=== PATIENT | female | born 1980 | race Caucasian/White ===

== ENCOUNTER 2022-12-04 11:38 | Emergency (ER) | payer SELFPAY ==
[2022-12-04] MEDS ORDERED: MORPHINE 4 MG/ML SYR ONE (12:24)
[2022-12-04] MEDS ORDERED: ONDANSETRON 4 MG/2 ML VIAL ONE (12:24)
[2022-12-04 12:32] LABS: Hematocrit 41.3 % (36.0-45.0); MCV 85.4 fL (80-100); MPV 9.5 fL (7.6-11.3); Platelets 270 thou/uL (152-406); RBC Red Blood Cell Count 4.84 M/uL (3.86-4.86)
[2022-12-04 12:50] LABS: Potassium 3.9 mEq/L (3.5-5.1)
[2022-12-04 13:48] LABS: Specific Gravity 1.029 (1.005-1.030)
--- NOTE | 2022-12-04 13:53 | RAD REPORT ---
EXAM DESCRIPTION: US - Transvaginal Study Probe - 12/04/2022 1:17 pm CLINICAL HISTORY: ABD PAIN Pelvic pain. COMPARISON: <Comparisons> FINDINGS: The examination is significantly technically limited. The uterus is enlarged containing echogenic material in the endometrial canal. There is also some flu id present. Endometrium is significantly thickened measuring up to 1.5 cm. Both ovaries are seen and appear normal in size shape and echotexture. Normal blood flow is seen to b oth ovaries. No significant pelvic ascites. IMPRESSION: The uterus is enlarged with significant echogenic material and fluid present.Recommend gera vallecillo direct visualization with hysteroscopy.
[2022-12-04 13:59] LABS: Specific Gravity 1.029 (1.005-1.030); Urine Bacteria <20 /HPF (<20); Urine Bilirubin NEGATIVE (Negative); Urine Blood Negative (Negative); Urine Clarity Extremely Turbid (Clear); Urine Color Light-Yellow (Yellow); Urine Glucose NEGATIVE (Negative); Urine Mucus Slight /HPF (None Seen); Urine Protein TRACE (Negative); Urine RBC <5 /HPF (None Seen); Urine Urobilinogen Normal (Normal)
[2022-12-04] MEDS ORDERED: HYDROMORPHONE HCL 0.5 MG/0.5 ML INJ ONE (14:55)
[2022-12-04] MEDS ORDERED: KETOROLAC 30 MG/ML INJ ONE (14:55)
--- NOTE | 2022-12-04 16:06 | RAD REPORT ---
EXAM DESCRIPTION: CTAbdomen Pelvis W Contrast - 12/04/2022 3:44 pm CLINICAL HISTORY: Abdominal pain. ABD PAIN COMPARISON: <Comparisons> TECHNIQUE: Biphasic CT imaging of the abdomen and pelvis was performed with 100 ml non-ionic IV cont rast. All CT scans are performed using dose optimization technique as appropriate and may include automated exposure control or mA/KV adjustment according to patient size. FINDINGS: The lung bases are clear. The liver, spleen, pancreas, adrenal glands and kidneys are within normal limits. No bowel obstruction, free air, free fluid or abscess. The appendix is normal. No evidence of signi ficant lymphadenopathy. No suspicious bony findings. Dilated endometrial stripe measuring 18 mm in thickness. IMPRESSION: Dilated endometrial stripe measuring 18 mm in thickness. Followup hysteroscopy would be suggested for direct visualization.
--- NOTE | 2022-12-04 16:38 | ER ---
Nurse's Notes [facility] Name: Katerina Rain Age: 42 yrs Sex: Female : 1980 Arrival Date: 12/04/2022 Time: 11:38 Bed 19 Private MD: Diagnosis: Lower abdominal pain, unspecified Presentation: 12/04 12:06 Chief complaint: Patient states: pelvic and RLQ pain since her tubal ligation and kc6 ablation 2mo ago. denies n/v/d or vaginal bleeding. Coronavirus screen: At this time, the client does not indicate any symptoms associated with coronavirus-19. Ebola Screen: No symptoms or risks identified at this time. Initial Sepsis Screen: Does the patient meet any 2 criteria? No. Patient's initial sepsis screen is negative. Does the patient have a suspected source of infection? No. Patient's initial sepsis screen is negative. Risk Assessment: Do you want to hurt yourself or someone else? Patient reports no desire to harm self or others. Onset of symptoms was December 04, 2022. 12:06 Method Of Arrival: Wheelchair kc6 12:06 Acuity: RADHA 3 kc6 Triage Assessment: 12:09 General: Appears in no apparent distress. uncomfortable, Behavior is calm, cooperative, kc6 appropriate for age. Pain: Complains of pain in right lower quadrant and pelvis Pain does not radiate. Pain currently is 7 out of 10 on a pain scale. EENT: No signs and/or symptoms were reported regarding the EENT system. Neuro: Level of Consciousness is awake, alert, obeys commands, Oriented to person, place, time, situation, Appropriate for age. Cardiovascular: Capillary refill < 3 seconds. Respiratory: Airway is patent Trachea midline Respiratory effort is even, unlabored, Respiratory pattern is regular, symmetrical. GI: No signs and/or symptoms were reported involving the gastrointestinal system. : No signs and/or symptoms were reported regarding the genitourinary system. Derm: No signs and/or symptoms reported regarding the dermatologic system. Skin is intact, is healthy with good turgor, Skin is pink, warm \T\ dry. Musculoskeletal: No signs and/or symptoms reported regarding the musculoskeletal system. Circulation, motion, and sensation intact. Capillary refill < 3 seconds, Range of motion: intact in all extremities. 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 - Social history:: Smoking status: Patient denies any tobacco usage or history of. Screenin:10 [facility] ED Fall Risk Assessment (Adult) History of falling in the last 3 months, kc6 including since admission No falls in past 3 months (0 pts) Confusion or Disorientation No (0 pts) Intoxicated or Sedated No (0 pts) Impaired Gait No (0 pts) Mobility Assist Device Used No (0 pt) Altered Elimination No (0 pt) Score/Fall Risk Level 0 - 2 = Low Risk. Abuse screen: Denies threats or abuse. Denies injuries from another. Nutritional screening: No deficits noted. Tuberculosis screening: No symptoms or risk factors identified. Assessment: 12:11 Reassessment: please see triage assessment. [facility] 13:11 Reassessment: Patient appears in no apparent distress at this time. No changes from kc6 previously documented assessment. Patient and/or family updated on plan of care and expected duration. Pain level reassessed. Patient is alert, oriented x 3, equal unlabored respirations, skin warm/dry/pink. 14:39 Reassessment: Patient appears in no apparent distress at this time. No changes from kc6 previously documented assessment. Patient and/or family updated on plan of care and expected duration. Pain level reassessed. Patient is alert, oriented x 3, equal unlabored respirations, skin warm/dry/pink. 15:32 Reassessment: Patient appears in no apparent distress at this time. No changes from kc6 previously documented assessment. Patient and/or family updated on plan of care and expected duration. Pain level reassessed. Patient is alert, oriented x 3, equal unlabored respirations, skin warm/dry/pink. 16:24 Reassessment: Patient appears in no apparent distress at this time. No changes from kc6 previously documented assessment. Patient and/or family updated on plan of care and expected duration. Pain level reassessed. Patient is alert, oriented x 3, equal unlabored respirations, skin warm/dry/pink. Vital Signs: 12:06 BP 124 / 92; Pulse 59; Resp 18 S; Temp 97.8(O); Pulse Ox 100% on R/A; Weight 90.72 kg kc6 (R); Height 5 ft. 4 in. (R); Pain 7/10; 13:43 BP 113 / 79; Pulse 65; Resp 17 S; Pulse Ox 95% on R/A; kc6 14:39 BP 101 / 66; Pulse 63; Resp 19 S; Pulse Ox 95% on R/A; kc6 15:32 BP 109 / 72; Pulse 50; Resp 16 S; Pulse Ox 95% on R/A; kc6 16:24 BP 100 / 76; Pulse 52; Resp 18 S; Pulse Ox 95% on R/A; kc6 12:06 Body Mass Index 34.33 (90.72 kg, 162.56 cm) kc6 12:06 Pain Scale: Adult kc6 ED Course: 11:43 Patient arrived in ED. ts1 11:44 Fabi Gutierrez PA-C is PHCP. sb4 11:44 Chance Dubose MD is Attending Physician. sb4 11:58 Miriam Peres, RN is Primary Nurse. cm10 12:06 Indira Fry, RN is Primary Nurse. kc6 12:07 Triage completed. kc6 12:09 Arm band placed on. kc6 12:10 Patient has correct armband on for positive identification. Placed in gown. Bed in low kc6 position. Call light in reach. Side rails up X 1. Adult w/ patient. 13:16 Transvaginal Study (probe) In Process Unspecified. EDMS 13:58 Pelvis Complete In Process Unspecified. EDMS 15:46 CT Abd/Pelvis - IV Contrast Only In Process Unspecified. EDMS 16:38 Aleida Jackson MD is Referral Physician. sb4 16:45 No provider procedures requiring assistance completed. IV discontinued, intact, kc6 bleeding controlled, No redness/swelling at site. Pressure dressing applied. Administered Medications: 12:25 Drug: morphine IVP or IV 4 mg Route: IVP; Infused Over: 4 mins; Site: right antecubital;kc6 13:43 Follow up: Response: No adverse reaction; Pain is unchanged, physician notified; RASS: kc6 Alert and Calm (0) 12:25 Drug: Ondansetron IVP 4 mg Route: IVP; Site: right antecubital; kc6 13:44 Follow up: Response: No adverse reaction kc6 14:51 Drug: HYDROmorphone IVP 0.5 mg Route: IVP; Site: right antecubital; kc6 16:17 Follow up: Response: No adverse reaction; Pain is decreased; RASS: Alert and Calm (0) kc6 14:51 Drug: Ketorolac IVP 15 mg Route: IVP; Site: right antecubital; kc6 16:17 Follow up: Response: No adverse reaction kc6 Medication: 16:46 VIS not applicable for this client. kc6 Outcome: 16:38 Discharge ordered by . sb4 16:46 Discharged to home ambulatory, with significant other. kc6 16:46 Condition: improved 16:46 Discharge instructions given to patient, Instructed on discharge instructions, follow up and referral plans. medication usage, Demonstrated understanding of instructions, follow-up care, medications, Prescriptions given X 1. 16:48 Patient left the ED. kc6 Signatures: Dispatcher [employer] EDIndira Conde RN RN [email or web address] Fabi Gutierrez, PA-C PA-C [email or web address] Shahla Yu PAS PAS ts1 Miriam Peres, RN RN cm10
--- NOTE | 2022-12-04 16:38 | EDPHYS ---
Physician Documentation [facility] Name: Katerina Rain Age: 42 yrs Sex: Female : 1980 Arrival Date: 12/04/2022 Time: 11:38 Bed 19 Private MD: ED Physician Chance Dubose HPI: 12/04 16:07 This 42 yrs old Female presents to ER via Wheelchair with complaints of Abdominal Pain, sb4 Pelvic Pain. 16:07 The patient presents with abdominal pain right lower quadrant. Onset: The sb4 symptoms/episode began/occurred gradually. The symptoms do not radiate. 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 she states that she has had moderate abdominal/pelvic cramping since but today the pain got significantly worse and is located specifically in her RLQ. she denies any vaginal bleeding, nausea, vomiting, diarrhea, fever, chills, shortness of breath. she had been taking ibuprofen for the pain previously. 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 - Social history:: Smoking status: Patient denies any tobacco usage or history of. ROS: 19:05 Constitutional: Negative for fever, chills, and weight loss. sb4 19:05 Abdomen/GI: Positive for abdominal pain, Negative for nausea, vomiting, and diarrhea. 19:05 All other systems are negative. Exam: 19:05 Constitutional: This is a well developed, well nourished patient who is awake, alert, sb4 and in no acute distress. 19:05 Head/Face: Normocephalic, atraumatic. Eyes: Extra-ocular motions intact. Periorbital areas with no swelling, redness, or edema. Cardiovascular: Regular rate and rhythm with a normal S1 and S2. Respiratory: Lungs have equal breath sounds bilaterally, clear to auscultation and percussion. No rales, rhonchi or wheezes noted. No increased work of breathing, no retractions or nasal flaring. Skin: Warm, dry with normal turgor. Normal color with no rashes, no lesions, and no evidence of cellulitis. MS/ Extremity: Pulses equal, no cyanosis. Neurovascular intact. Full, normal range of motion. 19:05 Abdomen/GI: Inspection: abdomen appears normal, Bowel sounds: normal, Palpation: soft, moderate abdominal tenderness, in the right lower quadrant. Vital Signs: 12:06 BP 124 / 92; Pulse 59; Resp 18 S; Temp 97.8(O); Pulse Ox 100% on R/A; Weight 90.72 kg kc6 (R); Height 5 ft. 4 in. (R); Pain 7/10; 13:43 BP 113 / 79; Pulse 65; Resp 17 S; Pulse Ox 95% on R/A; kc6 14:39 BP 101 / 66; Pulse 63; Resp 19 S; Pulse Ox 95% on R/A; kc6 15:32 BP 109 / 72; Pulse 50; Resp 16 S; Pulse Ox 95% on R/A; kc6 16:24 BP 100 / 76; Pulse 52; Resp 18 S; Pulse Ox 95% on R/A; kc6 12:06 Body Mass Index 34.33 (90.72 kg, 162.56 cm) kc6 12:06 Pain Scale: Adult kc6 MDM: 11:44 Patient medically screened. sb4 19:05 Differential diagnosis: appendicitis, diverticulitis, Dysmenorrhea, Endometriosis, sb4 non-specific abd pain, ovarian torsion, ovarian cyst, IUP, ectopic . Data reviewed: vital signs, nurses notes, lab test result(s), radiologic studies, and as a result, I will discharge patient. Consideration of Admission/Observation Escalation of care including admission/observation considered. Historians other than the Patient: Spouse/Significant Other: spouse. Counseling: I had a detailed discussion with the patient and/or guardian regarding the historical points, exam findings, and any diagnostic results supporting the discharge/admit diagnosis, lab results, radiology results, the need for outpatient follow up, an OB/Gyne specialist, to return to the emergency department if symptoms worsen or persist or if there are any questions or concerns that arise at home. 12/04 12:10 Order name: UAM; Complete Time: 14:00 sb4 12/04 12:10 Order name: Test, Urine; Complete Time: 13:50 sb4 12/04 12:10 Order name: CBC w/o diff; Complete Time: 12:33 sb4 12/04 12:10 Order name: BMP; Complete Time: 12:54 sb4 12/04 12:10 Order name: Transvaginal Study (probe); Complete Time: 13:56 sb4 12/04 13:58 Order name: Pelvis Complete EDMS 12/04 15:17 Order name: CT Abd/Pelvis - IV Contrast Only; Complete Time: 16:08 sb4 12/04 12:10 Order name: IV Start; Complete Time: 12:25 sb4 Administered Medications: 12:25 Drug: morphine IVP or IV 4 mg Route: IVP; Infused Over: 4 mins; Site: right antecubital;kc6 13:43 Follow up: Response: No adverse reaction; Pain is unchanged, physician notified; RASS: kc6 Alert and Calm (0) 12:25 Drug: Ondansetron IVP 4 mg Route: IVP; Site: right antecubital; kc6 13:44 Follow up: Response: No adverse reaction kc6 14:51 Drug: HYDROmorphone IVP 0.5 mg Route: IVP; Site: right antecubital; kc6 16:17 Follow up: Response: No adverse reaction; Pain is decreased; RASS: Alert and Calm (0) kc6 14:51 Drug: Ketorolac IVP 15 mg Route: IVP; Site: right antecubital; kc6 16:17 Follow up: Response: No adverse reaction kc6 Disposition: 17:43 Co-signature as Attending Physician, Chance Dubose MD I reviewed the patient's care rt provided by the Advanced Practice Provider and agree with the diagnosis and treatment plan. Disposition Summary: 12/04/22 16:38 Discharge Ordered Location: Home sb4 Problem: new sb4 Symptoms: have improved sb4 Condition: Stable sb4 Diagnosis - Lower abdominal pain, unspecified sb4 Followup: sb4 - With: - When: 2 - 3 days - Reason: Further diagnostic work-up, Recheck today's complaints, Re-evaluation by your physician Discharge Instructions: - Discharge Summary Sheet sb4 - Pelvic Pain, Female, [id number] sb4 - Hysteroscopy sb4 Forms: - Medication Reconciliation Form sb4 - Thank You Letter sb4 - Antibiotic Education sb4 - Prescription Opioid Use sb4 - Patient Portal Instructions sb4 - Leadership Thank You Letter sb4 Prescriptions: - Tramadol 50 mg Oral Tablet - take 1 tablet by ORAL route every 8 hours as needed; 12 tablet; Refills: 0, sb4 Product Selection Permitted Signatures: Dispatcher [employer] Indira Coley RN RN kc6 Fabi Gutierrez, IRAIDA PAFrances sb4 Chance Dubose MD MD rt
[2022-12-04 16:59] VITALS: TEMP 97.8
[2022-12-04 17:03] VITALS: O2SAT 95
[2022-12-04 17:10] VITALS: BP 100/76
== END 2022-12-04 16:48 | disposition home or self-care (01) ==
LOC: ER 11:38
DX: R10.31 Right lower quadrant pain (principal)
CPT/HCPCS: 36415; 74177; 76830; 76856; 80048; 81001; 81025; 85027; J1170; J2405; Q9967

== ENCOUNTER 2023-02-19 21:24 | Emergency (ER) | payer BC, SELFPAY ==
--- OUTSIDE RECORDS SUMMARY | 2023-02-19 21:27 | XMS REPORT | Continuity of Care Document ---
:1980 Author Organization [facility] t Address [address] [address] Care Team Providers Name Role Phone [email or web address]_E Attending Clinician Unavailable GC_GCBZW_Kadiyala_S Attending Clinician Unavailable GC_SWHAHL_McIntire_E Admitting Clinician Unavailable GC_GCBZW_Kadiyala_S Admitting Clinician Unavailable Payers Payer Name Policy Type Policy Number Effective Date Expiration Date S our[place] [id number] 2022 00:00:00 [place] Problems This patient has no known problems. Allergies, Adverse Reactions, Alerts This patient has no known allergies or adverse reactions. Medications This patient has no known medications. Procedures This patient has no known procedures. Encounters Start End Encounter Admission Attending Care Care Encounter Source Date/Time Date/Time Type Type Clinicians Facility Department ID 2023-02-10 2023-02-10 Outpatient GC_SWHAHL_M PRIV PRIV [id number] [facility] 00:00:00 00:00:00 cIntire_E [id number] [facility] 2023-01-23 2023-01-23 Outpatient GC_GCBZW_Ka PRIV PRIV [id number] [facility] 00:00:00 00:00:00 diyala_S [id number] [facility] 2023-01-13 2023-01-13 Outpatient GC_SWHAHL_M PRIV PRIV [id number] [facility] 00:00:00 00:00:00 cIntire_E [id number] [facility] 2022-12-26 2022-12-26 Outpatient GC_GCBZW_Ka PRIV PRIV [id number] [facility] 00:00:00 00:00:00 diyala_S [id number] [facility] 2022-12-26 2022-12-26 Outpatient GC_GCBZW_Ka PRIV PRIV [id number] [facility] 00:00:00 00:00:00 diyala_S [id number] Medic al 2022-12-26 2022-12-26 Outpatient GC_GCBZW_Ka PRIV PRIV [id number] [facility] 00:00:00 00:00:00 diyala_S [id number] Medic al 2022-12-18 2022-12-18 Outpatient GC_GCBZW_Ka PRIV PRIV [id number] [facility] 00:00:00 00:00:00 diyala_S [id number] Medic al 2022-12-16 2022-12-16 Outpatient GC_SWHAHL_M PRIV PRIV [id number] [facility] 00:00:00 00:00:00 cIntire_E [id number] [facility] 2022-12-13 2022-12-13 Outpatient GC_SWHAHL_M PRIV PRIV [id number] [facility] 00:00:00 00:00:00 cIntire_E [id number] [facility] 2022-12-12 2022-12-12 Outpatient GC_GCBZW_Ka PRIV PRIV [id number] [facility] 00:00:00 00:00:00 diyala_S [id number] Medic al 2022-12-11 2022-12-11 Outpatient GC_GCBZW_Ka PRIV PRIV [id number] [facility] 00:00:00 00:00:00 diyala_S [id number] Medic al 2022-12-10 2022-12-10 Outpatient GC_GCBZW_Ka PRIV PRIV [id number] [facility] 00:00:00 00:00:00 diyala_S [id number] Medic al 2022-12-05 2022-12-05 Outpatient GC_GCBZW_Ka PRIV PRIV [id number] [facility] 00:00:00 00:00:00 diyala_S [id number] Medic al Results This patient has no known results.
[2023-02-19] MEDS ORDERED: NA CHLORIDE 0.9% 1,000 ML ONE (22:10)
[2023-02-19] MEDS ORDERED: MORPHINE 4 MG/ML SYR ONE (22:10)
[2023-02-19] MEDS ORDERED: ONDANSETRON 4 MG/2 ML VIAL ONE (22:10)
[2023-02-19 23:04] LABS: Albumin 3.7 g/dL (3.4-5.0); Bilirubin Total 0.5 mg/dL (0.2-1.0); Potassium 3.8 mEq/L (3.5-5.1); Protein, Total 7.6 g/dL (6.4-8.2)
[2023-02-19 23:13] LABS: Absolute Lymphocytes (CBC) 1.9 K/uL (0.7-4.9); Hematocrit 38.4 % (36.0-45.0); Lymphocytes % 14.7 % (15.3-44.8); MCV 85.7 fL (80-100); MPV 9.6 fL (7.6-11.3); Platelets 250 thou/uL (152-406); RBC Red Blood Cell Count 4.48 M/uL (3.86-4.86)
[2023-02-20 01:23] LABS: Urine Bacteria None Seen /HPF (<20); Urine Bilirubin NEGATIVE (Negative); Urine Blood Negative (Negative); Urine Clarity Turbid (Clear); Urine Color Light-Yellow (Yellow); Urine Glucose NEGATIVE (Negative); Urine Mucus 1+ /HPF (None Seen); Urine Protein NEGATIVE (Negative); Urine RBC None Seen /HPF (None Seen); Urine Urobilinogen Normal (Normal); Urine pH 6.5 (5.0-7.0)
--- NOTE | 2023-02-20 01:27 | ER ---
Nurse's Notes [facility] Name: Katerina Rain Age: 42 yrs Sex: Female : 1980 Arrival Date: 02/19/2023 Time: 21:24 Bed 4 Private MD: Diagnosis: Lower abdominal pain, unspecified Presentation: 02/19 21:35 Chief complaint: Patient states: PELVIC AND ABD PAIN THAT SHOTS DOWNS HER LEGS AND BACK jj7 SINCE OCTOBER. TOOK 2 TRAMADOL AND PRENOPROXIN AND IT'S NOT HELPING WITH THE PAIN. Coronavirus screen: At this time, the client does not indicate any symptoms associated with coronavirus-19. Ebola Screen: No symptoms or risks identified at this time. Initial Sepsis Screen: Does the patient meet any 2 criteria? No. Patient's initial sepsis screen is negative. Does the patient have a suspected source of infection? No. Patient's initial sepsis screen is negative. Risk Assessment: Do you want to hurt yourself or someone else? Patient reports no desire to harm self or others. 21:35 Method Of Arrival: Ambulatory [facility] 21:35 Acuity: RADHA 3 j7 02/20 00:37 Onset of symptoms is unknown. jw7 Triage Assessment: 02/19 21:40 General: Appears in no apparent distress. uncomfortable, Behavior is cooperative, jj7 appropriate for age, agitated. Pain: Complains of pain in back and pelvis. GI: Reports nausea. 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 - Social history:: Smoking status: Patient denies any tobacco usage or history of. Patient/guardian denies using alcohol, street drugs. Screenin:15 [facility] ED Fall Risk Assessment (Adult) History of falling in the last 3 months, cm10 including since admission No falls in past 3 months (0 pts) Confusion or Disorientation No (0 pts) Intoxicated or Sedated No (0 pts) Impaired Gait No (0 pts) Mobility Assist Device Used No (0 pt) Altered Elimination No (0 pt) Score/Fall Risk Level 0 - 2 = Low Risk Oriented to surroundings, Maintained a safe environment, Hourly rounding (assess needs \T\ fall precautionary measures) done. Abuse screen: Denies threats or abuse. Denies injuries from another. Nutritional screening: No deficits noted. Tuberculosis screening: No symptoms or risk factors identified. Assessment: 22:14 General: Appears in no apparent distress. uncomfortable, Behavior is calm, cooperative. cm10 Pain: Complains of pain in pelvis and back Pain currently is 8 out of 10 on a pain scale. Quality of pain is described as sharp, Pain began October 2022 Is intermittent. Neuro: No deficits noted. Sanchez Agitation-Sedation Scale (RASS): 0 - Alert and Calm Level of Consciousness is awake, alert, obeys commands, Oriented to person, place, time, situation. Cardiovascular: No deficits noted. Patient's skin is warm and dry. Respiratory: No deficits noted. Airway is patent Respiratory effort is even, unlabored, Respiratory pattern is regular, symmetrical. GI:. GI: Bowel sounds present X 4 quads. Abd is soft. : No deficits noted. No signs and/or symptoms were reported regarding the genitourinary system. EENT: No deficits noted. No signs and/or symptoms were reported regarding the EENT system. Derm: No deficits noted. No signs and/or symptoms reported regarding the dermatologic system. Skin is intact, Skin is pink, warm \T\ dry. 02/20 00:20 Reassessment: Patient appears in no apparent distress at this time. No changes from [facility] previously documented assessment. Patient and/or family updated on plan of care and expected duration. Pain level reassessed. Patient is alert, oriented x 3, equal unlabored respirations, skin warm/dry/pink. 01:21 Reassessment: Patient appears in no apparent distress at this time. No changes from jw7 previously documented assessment. Patient and/or family updated on plan of care and expected duration. Pain level reassessed. Patient is alert, oriented x 3, equal unlabored respirations, skin warm/dry/pink. Vital Signs: 02/19 21:35 BP 143 / 91; Pulse 84; Resp 19; Temp 98.1; Pulse Ox 100% ; Weight 99.79 kg; Height 5 jj7 ft. 4 in. ; Pain 8/10; 22:00 BP 118 / 83; Pulse 73; Resp 18 S; Pulse Ox 100% on R/A; jw7 23:00 BP 120 / 78; Pulse 67; Resp 19 S; Pulse Ox 100% on R/A; jw7 02/20 00:30 BP 143 / 97; Pulse 73; Resp 17 S; Pulse Ox 100% on R/A; jw7 01:30 BP 149 / 93; Pulse 65; Resp 17 S; Pulse Ox 100% on R/A; jw7 02/19 21:35 Body Mass Index 37.76 (99.79 kg, 162.56 cm) j7 02/19 21:35 Pain Scale: Adult [facility] ED Course: 02/19 21:28 Patient arrived in ED. ag3 21:40 Triage completed. 7 21:40 Arm band placed on left wrist. [facility] 21:42 Kimberley Hughes FNP-C is PHCP. kb 21:42 Fred Saez MD is Attending Physician. kb 22:12 Initial lab(s) drawn, by me, sent to lab. Inserted saline lock: 20 gauge in right cm10 antecubital area, using aseptic technique. Blood collected. 22:12 CBC with Diff Sent. cm10 22:12 CMP Sent. cm10 22:12 Lipase Sent. cm10 22:15 Patient has correct armband on for positive identification. Bed in low position. Call cm10 light in reach. Side rails up X2. Adult w/ patient. Provided Education on: ER process and procedures. . Pulse ox on. NIBP on. Door closed. Lights dimmed. 02/20 00:21 CT Abd/Pelvis - IV Contrast Only In Process Unspecified. EDMS 00:27 Anthony Valle, RN is Primary Nurse. bp 01:53 No provider procedures requiring assistance completed. IV discontinued, intact, jw7 bleeding controlled, No redness/swelling at site. Pressure dressing applied. Administered Medications: 02/19 22:11 Drug: NS 0.9% IV 1000 ml IV at 1 bolus Per protocol; 1000 mL bolus Route: IV; Rate: 1 cm10 bolus; Site: right antecubital; 02/20 00:00 Follow up: Response: No adverse reaction; IV Status: Completed infusion; IV Intake: cm10 1000ml 02/19 22:11 Drug: Ondansetron IVP 4 mg IVP once; over 2 minutes Route: IVP; Site: right antecubital;cm10 02/20 00:01 Follow up: Response: No adverse reaction cm10 02/19 22:11 Drug: morphine IVP or IV 4 mg IVP once over 4 mins Route: IVP; Infused Over: 4 mins; cm10 Site: right antecubital; 02/20 00:01 Follow up: Response: No adverse reaction cm10 01:52 Drug: Ketorolac IVP 15 mg IVP once Route: IVP; Site: right antecubital; jw7 01:52 Follow up: Response: No adverse reaction jw7 01:52 Drug: Rayle PO 10 mg-325 mg 1 tabs PO once Route: PO; jw7 01:52 Follow up: Response: No adverse reaction jw7 Medication: 02/19 22:16 VIS not applicable for this client. cm10 Intake: 02/20 00:00 IV: 1000ml; Total: 1000ml. cm10 Outcome: 01:27 Discharge ordered by MD. jorge 01:53 Discharged to home ambulatory, with family, jw7 01:53 Condition: stable 01:53 Discharge instructions given to patient, Instructed on discharge instructions, follow up and referral plans. Demonstrated understanding of instructions, follow-up care, 01:54 Patient left the ED. jw7 Signatures: Dispatcher [employer] EDMS Kimberley Hughes, ANTHONY-C FISH PEDDLER-Anthony Hooker, RN RN Phyllis Mensah ag3 Paige Guzman RN RN jw7 David Osorio RN RN jj7 Martinez, Clarissa, RN RN cm10
--- NOTE | 2023-02-20 01:28 | EDPHYS ---
Physician Documentation [facility] Name: Katerina Rain Age: 42 yrs Sex: Female : 1980 Arrival Date: 02/19/2023 Time: 21:24 Bed 4 Private MD: Fred Holbrook HPI: 02/20 01:44 This 42 yrs old Female presents to ER via Ambulatory with complaints of Abdominal Pain, kb Vaginal Pain. 01:44 Patient is a 42-year-old female with a history of endometriosis who presents for right kb lower quadrant and pelvic pain. States she has been seen by gynecology for this and has been trying to do more conservative treatment, surgery has been offered. States the pain has been getting more intense with each episode and today is the worst. States the pain is always on the right side. Denies vaginal bleeding, nausea, vomiting, diarrhea, fever. 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 - Social history:: Smoking status: Patient denies any tobacco usage or history of. Patient/guardian denies using alcohol, street drugs. ROS: 02/20 01:42 Constitutional: Negative for fever, chills, and weight loss, kb Abdomen/GI: Positive for abdominal pain, All other systems are negative, Exam: 01:42 Constitutional: This is a well developed, well nourished patient who is awake, alert, kb and in no acute distress. Head/Face: Normocephalic, atraumatic. ENT: Moist Mucous membranes Cardiovascular: Regular rate Respiratory: Respirations even and unlabored. No increased work of breathing. Talking in full sentences Skin: Warm, dry with normal turgor. Normal color. MS/ Extremity: Pulses equal, no cyanosis. Neurovascular intact. Full, normal range of motion. Neuro: Awake and alert, GCS 15, oriented to person, place, time, and situation. Moves all extremities. Normal gait. 01:42 Abdomen/GI: Inspection: abdomen appears normal, Bowel sounds: normal, Palpation: soft, in all quadrants, moderate abdominal tenderness, in the right lower quadrant, Vital Signs: 02/19 21:35 BP 143 / 91; Pulse 84; Resp 19; Temp 98.1; Pulse Ox 100% ; Weight 99.79 kg; Height 5 jj7 ft. 4 in. ; Pain 8/10; 22:00 BP 118 / 83; Pulse 73; Resp 18 S; Pulse Ox 100% on R/A; jw7 23:00 BP 120 / 78; Pulse 67; Resp 19 S; Pulse Ox 100% on R/A; jw7 02/20 00:30 BP 143 / 97; Pulse 73; Resp 17 S; Pulse Ox 100% on R/A; jw7 01:30 BP 149 / 93; Pulse 65; Resp 17 S; Pulse Ox 100% on R/A; jw7 02/19 21:35 Body Mass Index 37.76 (99.79 kg, 162.56 cm) [facility] 02/19 21:35 Pain Scale: Adult [facility] MDM: 02/19 21:42 Patient medically screened. kb 02/20 01:43 Differential diagnosis: appendicitis, Endometriosis, non-specific abd pain, kb Pyelonephritis, Ureterolithiasis, urinary tract infection. Data reviewed: vital signs, nurses notes. Counseling: I had a detailed discussion with the patient and/or guardian regarding the historical points, exam findings, and any diagnostic results supporting the discharge/admit diagnosis, lab results, radiology results, the need for outpatient follow up, an OB/Gyne specialist, to return to the emergency department if symptoms worsen or persist or if there are any questions or concerns that arise at home. ED course: Discussed all results with patient including concern for malignancy on CT scan. Patient states she has discussed surgeries, biopsy and conservative treatments with drum tender. Has appointment at the end of the month. Will call tomorrow to see if she can get appointment moved up.. 02/19 21:46 Order name: CBC with Diff; Complete Time: 23:20 kb 02/19 21:46 Order name: CMP; Complete Time: 23:15 kb 02/19 21:46 Order name: Lipase; Complete Time: 23:15 kb 02/19 21:46 Order name: Test, Urine; Complete Time: 01:25 kb 02/19 21:46 Order name: Urinalysis w/ reflexes; Complete Time: 01:25 kb 02/19 21:46 Order name: CT Abd/Pelvis - IV Contrast Only kb 02/19 21:46 Order name: IV Saline Lock; Complete Time: 22:11 kb 02/19 21:46 Order name: Labs collected and sent; Complete Time: 22:11 kb Administered Medications: 02/19 22:11 Drug: NS 0.9% IV 1000 ml IV at 1 bolus Per protocol; 1000 mL bolus Route: IV; Rate: 1 cm10 bolus; Site: right antecubital; 02/20 00:00 Follow up: Response: No adverse reaction; IV Status: Completed infusion; IV Intake: cm10 1000ml 02/19 22:11 Drug: Ondansetron IVP 4 mg IVP once; over 2 minutes Route: IVP; Site: right antecubital;cm10 02/20 00:01 Follow up: Response: No adverse reaction cm10 02/19 22:11 Drug: morphine IVP or IV 4 mg IVP once over 4 mins Route: IVP; Infused Over: 4 mins; cm10 Site: right antecubital; 02/20 00:01 Follow up: Response: No adverse reaction 10 01:52 Drug: Ketorolac IVP 15 mg IVP once Route: IVP; Site: right antecubital; jw7 01:52 Follow up: Response: No adverse reaction 7 01:52 Drug: Parrott PO 10 mg-325 mg 1 tabs PO once Route: PO; jw7 01:52 Follow up: Response: No adverse reaction jw7 Disposition Summary: 02/20/23 01:27 Discharge Ordered Notes: Location: Home Condition: Stable kb Diagnosis - Lower abdominal pain, unspecified kb Followup: kb - With: Emergency Department - When: As needed - Reason: Worsening of condition Followup: kb - With: Private Physician - When: 2 - 3 days - Reason: Recheck today's complaints, Continuance of care, Re-evaluation by your physician Discharge Instructions: - Discharge Summary Sheet kb - Endometriosis kb - Abdominal Pain, Adult, [id number] kb Forms: - Medication Reconciliation Form kb - Thank You Letter kb - Antibiotic Education kb - Prescription Opioid Use kb - Patient Portal Instructions kb - Leadership Thank You Letter kb Signatures: Dispatcher [employer] Kimberley Barahona, ANTHONY-C BILLET CUTTER-Paige Lira, RN RN jw7 David Osorio RN RN jj7 Miriam Peres RN RN cm10
[2023-02-20] MEDS ORDERED: HYDROCODONE/APAP 10/325 TAB ONE (01:58)
[2023-02-20] MEDS ORDERED: KETOROLAC 30 MG/ML INJ ONE (01:58)
[2023-02-20 02:28] VITALS: TEMP 98.1; O2SAT 100
[2023-02-20 02:32] VITALS: BP 149/93
--- NOTE | 2023-02-20 12:41 | RAD REPORT ---
EXAM DESCRIPTION: Abdomen Pelvis W Contrast CLINICAL HISTORY: PELVIC PAIN COMPARISON: 12/04/2022 TECHNIQUE: CT of the abdomen and pelvis performed following the administration of IV contrast. No or al contrast. This exam was performed according to our departmental dose-optimization program, which i ncludes automated exposure control, adjustment of the mA and/or kV according to patient size and/or u se of iterative reconstruction technique. FINDINGS: Lung Bases: Mild bilateral dependent atelectasis. Abdomen: Liver: The liver has normal contour and density. No suspicious mass. Gallbladder: No calcified gallstones. No significant biliary dilatation. Spleen, Pancreas, and Adrenal Glands: The spleen, pancreas, and adrenal glands are unremarkable. Kidneys: No suspicious mass. No urinary tract calculi. No hydronephrosis. Vasculature: The aorta and IVC have normal caliber and position. The portal vein is patent. The pro ximal visceral and renal arteries are patent. Stomach: The stomach and duodenum have normal course. Other: No free intraperitoneal air. No free fluid or lymphadenopathy. Pelvis: Bladder: Underdistended. Bowel: No dilated loops of large or small bowel. Moderate stool in the colon. There is a nodule i n the anterior midabdomen measuring up to 1.2 cm with apparent fat density. This could be due to sequ shirin of prior fat necrosis or omental infarct. Appendix: Normal appendix. Pelvis: There is heterogeneous lobular appearance of the endometrium, progressed from prior. Findings are concerning for malignancy. Bones: No destructive bone lesions identified. IMPRESSION: 1. Increase heterogeneous lobular thickening of the endometrium, concerning for malignan cy. Pelvic ultrasound could be performed for further evaluation. Correlate with any history of previo us biopsy. 2. Moderate stool in the colon. No bowel obstruction. 3. Small nodule in the anterior lower abdomen is not definitely seen on prior. There appears to be so me central fat density and is sequela of prior fat necrosis Electronically signed by: Tarah Blum MD 02/20/2023 12:43 AM CDT Due to temporary technical issues with the PACS/Fluency reporting system, reports are being signed by the in house radiologist without review as a courtesy to ensure prompt reporting. The interpreting r adiologist is fully responsible for the content of the report.
== END 2023-02-20 01:54 | disposition home or self-care (01) ==
LOC: ER 21:24
DX: R10.31 Right lower quadrant pain (principal); R10.2 Pelvic and perineal pain
CPT/HCPCS: 96361; 85025; 81001; 36415; 81025; 83690; 80053; 74177; 96375; 96374; 99284; Q9967; J2405; J7030

== ENCOUNTER 2023-03-28 11:31 | Day surgery (SDC) | payer BC ==
[2023-03-25 12:03] LABS: Specific Gravity 1.028 (1.005-1.030); Urine Bacteria None Seen /HPF (<20); Urine Bilirubin NEGATIVE (Negative); Urine Blood Negative (Negative); Urine Clarity Turbid (Clear); Urine Color Light-Yellow (Yellow); Urine Glucose NEGATIVE (Negative); Urine Mucus Slight /HPF (None Seen); Urine Protein NEGATIVE (Negative); Urine Urobilinogen Normal (Normal)
[2023-03-25 12:15] LABS: Absolute Lymphocytes (CBC) 3.1 K/uL (0.7-4.9); Hematocrit 38.4 % (36.0-45.0); Lymphocytes % 36.1 % (15.3-44.8); MCV 86.7 fL (80-100); MPV 9.6 fL (7.6-11.3); Platelets 235 thou/uL (152-406); RBC Red Blood Cell Count 4.43 M/uL (3.86-4.86)
[~2023-03-28 11:31] MED LIST: CEFAZOLIN 3 GM in NA CHLORIDE 0.9% 100 ML IVPB SCH
[2023-03-28] MEDS ORDERED: CEFAZOLIN SODIUM 1 GM/VIAL ONE (12:03)
[2023-03-28] MEDS ORDERED: SCOPOLAMINE HYDROBROMIDE PATCH TD ONE (12:03)
[2023-03-28] MEDS ORDERED: CEFAZOLIN SODIUM 2 GM/VIAL ONE (12:03)
[2023-03-28] MEDS ORDERED: Ringers Lactate 1,000 ML IV ONE ×2 (12:04→14:36)
[2023-03-28] MEDS ORDERED: BUPIVACAINE 0.25% PF 30 ML VIAL ONE ×2 (12:26→12:27)
[2023-03-28] MEDS ORDERED: ROCURONIUM 50 MG/5 ML VIAL IV ONE (13:06)
[2023-03-28] MEDS ORDERED: NEOSTIGMINE 1 MG/ML -10 ML VIAL ONE (13:06)
[2023-03-28] MEDS ORDERED: propofoL 200 MG/20 ML VIAL IV ONE (13:06)
[2023-03-28] MEDS ORDERED: GLYCOPYRROLATE 0.2 MG/ML SYR ONE (13:06)
[2023-03-28] MEDS ORDERED: ONDANSETRON 4 MG/2 ML VIAL ONE (13:06)
[2023-03-28] MEDS ORDERED: FENTANYL CITR 100 MCG/2 ML ONE ×2 (13:06→14:25)
[2023-03-28] MEDS ORDERED: MIDAZOLAM HCL 2 MG/2 ML INJ ONE (13:06)
[2023-03-28] MEDS ORDERED: LIDOCAINE 2% MPF 5 ML VIAL ONE (13:06)
[2023-03-28] MEDS ORDERED: dexAMETHasone 4 MG/ML VIAL ONE (14:53)
[2023-03-28] MEDS ORDERED: METHYLENE BLUE 1% 10 ML VIAL ONE (15:07)
[2023-03-28] MEDS ORDERED: MEPERIDINE HCL 25 MG/ML SYR ONE (15:44)
[2023-03-28] MEDS ORDERED: KETOROLAC 30 MG/ML INJ ONE (16:17)
[2023-03-28] MEDS: HYDROMORPHONE HCL 2 MG/ML inj ONE ×3 (16:39→16:50)
[2023-03-28] MEDS ORDERED: HYDROMORPHONE HCL 1 MG/ML INJ ONE (17:05)
[2023-03-28 17:31] VITALS: TEMP 97.3; O2SAT 95
[2023-03-28] MEDS ORDERED: HYDROCODONE/APAP 5/325 MG TAB ONE ×2 (18:05→18:44)
[2023-03-28 20:01] VITALS: BP 116/79
[2023-03-29 01:25] LABS: Urine Specific Gravity/Preg >1.030 (1.005-1.030)
--- NOTE | 2023-03-29 04:01 | OP ---
Date of Procedure: 03/28/2023 Surgeon: Aleida Jackson MD Swimming Pool Installer: Niesha Cornell. Preoperative Diagnoses: History of menorrhagia, status post ablation, recurrent bleeding, and pelvic pain. Postoperative Diagnoses: History of menorrhagia, status post ablation, recurrent bleeding, and pelvi c pain and endometriosis of the bilateral mesosalpinges, hematosalpinx, and tubal endometriosis, righ t greater than the left. Procedures Performed: Total laparoscopic hysterectomy, bilateral salpingectomy, endometriosis excisi on, repair of the superficial bladder laceration, and cystoscopy. Anesthesia: General endotracheal. Specimens: Uterus, bilateral tubes, endometriosis included with the specimen. Complications: Superficial laceration of bladder at the right bladder dome. This was oversewn and i t was 1.5 cm defect that did not have any leak of the methylene blue on retrograde filling of the keyur dder, so this is not a full-thickness cystotomy. It was repaired in 2 layers closing 1 over the othe r laparoscopically with an absorbable suture. Bilateral ovaries were unremarkable. On cystoscopy, no evidence of any injury to the transitional ep ithelium. Both ureteric orifices with strong jets of urine from them. Estimated Blood Loss: Minimal, less than 50. Urine Output: 100. Fluids: 1500. Patient's Condition: Stable. Indications: The patient is a 43-year-old female who presented with pelvic pain 5-6 months ago. She was evaluated. She is status post ablation from her past HOME SPECIAL[place]. She also had tubal l igation. She has not had any relief of her pelvic pain, and worsened. She was observed w ithout any intervention that this has gotten significantly worse so she presented back in the office. Discussed her condition could be postablation tubal ligation syndrome, endometriosis, and recurrent bleeding, likely adenomyosis is possible, so of all the options, which included diagnostic laparosco py with bilateral salpingectomy, possible endometriosis excision or hysterectomy, bilateral salpingec agatha, and endometriosis excision. She wanted to proceed with definitive treatment using hysterectomy with bilateral salpingectomy, endometriosis excision because the patient did not want to come back f or any more pain, no fertility desires. Description Of Procedure: After her consent was re-verified, and by the side in the preopera tive area, she was taken back to OR, placed in a supine fashion on operating table. General anesthes ia was given and she was placed in a dorsal lithotomy position using Ho stirrups. 3 g of Ancef we re given. SCDs were placed. Arms were tucked by the side, positioning checked and procedure started . Speculum placed to expose the cervix and dilated to 16-Brazilian. A large cup uterine manipulator was i nserted and fixed in place. Sykes was placed to drain the bladder and attached for gravity drainage. This area was draped. 1 cm infraumbilical incision was made with a scalpel in the midline. Fascia incised, tagged with 0 V icryl sutures. Peritoneum entered sharply with scissors. Aminta introduced after adequate insufflat ion. Site of entry was checked and was unremarkable. The anterior abdominal wall was visualized. A 5 left lower quadrant and 10/12 suprapubic ports were placed under direct vision. There was pelvic survey that showed endometriosis in the mesosalpinx, hematosalpinx on the right side, endometriosis i n the mesosalpinx on the left side. No ovarian endometriosis or the peritoneal endometriosis. Plan was to dissect the endometriosis away from the lateral wall and completely excise it from the adnexa. On both sides this was first performed. The mesosalpinx was opened up inferior to the round ligame nt, then dissected parallel to the IP without compromising the blood supply to the ovary. Then, fimb riated ends were cut through with the LigaSure. The endometriosis was excised from the mesosalpinx s eparating the lateral pelvic sidewall mesosalpinx from the medial and exposing the utero-ovarian liga ment as the pedicle and the round ligament as the pedicle as well, first on the right side, then sun lar dissection performed on the left side. The endometriosis at the site of the tubal ligation segme nt of the tube was exposed and excised from the lateral wall. Bilateral salpingectomy: Mesosalpinx was dissected. Rest of the mesosalpinx was dissected with the LigaSure and both tubes were . Hysterectomy: Utero-ovarian ligament was taken down with the help of the LigaSure. Round ligament t aken down as well. The anterior-posterior peritoneum on the broad ligament was opened up and the bro ad ligament was dissected to skeletonize the vessels. The anterior bladder flap on the left side was opened up to raise the bladder flap. The vaginal cuff was identified on the vagina. The bladder wa s dissected inferiorly on the left side. Then posteriorly the pedicle was exposed. Posterior dissec tion was carried towards the posterior cuff. Then, the vessels were isolated at the level of the int ernal os, cauterization was done with the bipolar LigaSure, and then, the vessels were cut. Then, th is pedicle was held and dissection carried laterally to odilia it and the cardinal ligaments were take n down, cauterized and cut with the bipolar. Then the entire cup was exposed posteriorly towards the uterosacral attachment. This was taken down as well. On the opposite side, similar dissection was performed taking down the round ligament, then taken will n the utero-ovarian ligament connecting and removing the rest of the tube. The left tube had come lo ose distal portion and this was handed out for permanent pathology separately. The round ligament taken down on the right side and anterior, posterior peritoneum of the broad ligam ent opened up. The broad ligament taken down to skeletonize the vessels. The ureter was dissected l aterally while opening up the peritoneum to connect the bladder flap. There was about 1 to 1.5 cm la ceration on the superficial bladder near the dome. This was identified and plan was to test the inte grity of the bladder for a cystotomy. Retrograde filling with methylene blue: The Sykes was detached. A 50 cc syringe was used to dilute a 1 ampule of methylene blue in 250 cc of normal saline. This was injected into the bladder. There was no evidence of any leak or any staining of the detrusor with the methylene blue. This proved to me that the epithelium was intact. There was superficial laceration. The bladder was then drained. Closed superficial laceration with the help of 2 layer 3-0 Monocryl closure in a continuous running f ashion and second layer to imbricate this and tie down with intracorporeal knots. Then the rest of the pedicle of the uterine artery and vein were isolated. These were taken down wit h help of the LigaSure, bipolar, and monopolar. The colpotomy was performed with the help of monopol ar hook blade circumferentially and specimen was detached and pulled out through the vagina. Vaginal occluder was placed and vaginal cuff was closed after thorough irrigation and suction. 2 ang le sutures with 0 PDS and 3 [id number] in the middle. The excellent apposition of both layers of the anterior, posterior fascia. There was excellent lift at the top and no evidence of any trauma to the ureters. Ovaries intact and well vascularized. Trocars were removed under direct vision. A 0.25% bupivacaine was injected both at the site of entry on both the suprapubic and left lateral ports as well as on the skin incisions. At the end, a TAP bl ock style injection was given 10 mL in both locations as well. The trocars were pulled under direct vision. After gas was desufflated, fascia at the umbilicus was closed with the help of 0 Vicryl tag sutures tied to each other and simple 0 Vicryl suture in the sup rapubic fascial site. The skin incisions closed with interrupted 5-0 Monocryl. The vaginal occluder was removed and Sykes was removed. Cystoscopy was performed with a 17-Brazilian sh eath, 30-degree lens and normal saline. The excellent jets of urine from both ureteric orifices afte r filling it to at least 200 mL. No evidence of any trauma to the bladder. All parts of the bladder including the area above the trigone dome and lateral medina were visualized. 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 The bladder was left filled. All the instruments, needles, and sponges were counted and were correct. She was recovered from anesthesia and taken to PACU in stable condition. She has 1-week followup with me. Her would be briefed ab out the procedure. JOSIAH/SORAYA Voice ID: [id number] Report ID: [id number]
== END 2023-03-28 19:17 | disposition home or self-care (01) ==
LOC: OR 11:31
PROVIDERS: ATTEND Obstetrics & Gynecology
PROC: 0UT74ZZ Resection of Bilateral Fallopian Tubes, Percutaneous Endoscopic Approach (ICD-10-PCS; 2023-03-28)
PROC: 0TQB4ZZ Repair Bladder, Percutaneous Endoscopic Approach (ICD-10-PCS; 2023-03-28)
PROC: 0UT94ZZ Resection of Uterus, Percutaneous Endoscopic Approach (ICD-10-PCS; principal; 2023-03-28 12:30)
DX: N92.6 Irregular menstruation, unspecified (principal); N93.9 Abnormal uterine and vaginal bleeding, unspecified; R10.2 Pelvic and perineal pain; F41.9 Anxiety disorder, unspecified; N80.203 Endometriosis of bilateral fallopian tubes, unspecified depth; N99.71 Accidental puncture and laceration of a genitourinary system organ or structure during a genitourinary system procedure
CPT/HCPCS: 85025; 81001; 36415; 86900; 86850; 81025; 86901; 88307; 58571; 51860; J2704; J1100; J2710; J2001; J2250; J1170 ×2; J3010 ×2; J2175; J2405; J7120 ×2; J0690 ×2